=== PATIENT | female | born 1950 | race Two or more races ===

== ENCOUNTER 2017-07-29 13:54 | Outpatient (CLI) | payer OTHER | END 2017-07-29 14:02 | disposition home or self-care (01) | LOC: MAMO-SONO 13:54 | DX: Z12.31 Encounter for screening mammogram for malignant neoplasm of breast (principal); Z87.898 Personal history of other specified conditions ==

== ENCOUNTER → 2017-07-29 | Outpatient (CLI) | payer OTHER | END | disposition home or self-care (01) | LOC: RAD 501 15:02 | DX: J20.9 Acute bronchitis, unspecified (principal); M25.561 Pain in right knee ==

== ENCOUNTER 2017-08-13 10:42 | Outpatient (CLI) | payer OTHER | END 2017-08-13 16:47 | disposition home or self-care (01) | LOC: NUCLEAR 10:42 | DX: M81.0 Age-related osteoporosis without current pathological fracture (principal); Z13.820 Encounter for screening for osteoporosis ==

== ENCOUNTER → 2017-10-09 | Outpatient (CLI) | payer OTHER | END | disposition home or self-care (01) | LOC: NUCLEAR 12:58 | DX: I87.2 Venous insufficiency (chronic) (peripheral) (principal) ==

== ENCOUNTER 2017-10-14 11:08 | Outpatient (CLI) | payer OTHER | END 2017-10-14 14:53 | disposition home or self-care (01) | LOC: MRI 11:08 | DX: M25.561 Pain in right knee (principal) | CPT/HCPCS: 73721 ==

== ENCOUNTER 2020-06-11 08:20 | Outpatient (CLI) | payer OTHER | END 2020-06-11 08:41 | disposition home or self-care (01) | LOC: NUCLEAR 08:20 | PROVIDERS: ATTEND Acupuncturist | DX: I70.413 Atherosclerosis of autologous vein bypass graft(s) of the extremities with intermittent claudication, bilateral legs (principal); I70.213 Atherosclerosis of native arteries of extremities with intermittent claudication, bilateral legs ==

== ENCOUNTER 2020-06-12 09:41 | Outpatient (CLI) | payer OTHER | END 2020-06-12 09:50 | disposition home or self-care (01) | LOC: NUCLEAR 09:41 | PROVIDERS: ATTEND Acupuncturist | DX: I70.413 Atherosclerosis of autologous vein bypass graft(s) of the extremities with intermittent claudication, bilateral legs (principal); M79.661 Pain in right lower leg; M79.662 Pain in left lower leg ==